=== PATIENT | male | born 1955 | race Caucasian/White ===

== ENCOUNTER 2022-09-09 13:22 | Emergency (ER) | payer MEDICARE, SELFPAY ==
--- NOTE | 2022-09-09 13:23 | ED.GENADULT ---
HPI - General Adult General Chief complaint: Back Pain/Injury Stated complaint: Back Pain, Headache Time Seen by Provider: 09/09/22 13:38 Source: patient, RN notes reviewed and old records reviewed Mode of arrival: ambulatory Limitations: no limitations History of Present Illness HPI narrative: 66-year-old male presents to the [facility] with complaints of lower back pain and headache. Patient states he has had the lower back pain for years, states that he recently bought a shower chair, got wedged and had to call EMS. At that time he reports he was transported to [facility] and had scans, reports they did nothing for him after that. Also reports a headache that has been going on for months. Patient states that he tried calling his primary care provider and cannot get an appointment October 09. States that his current primary is retiring. Patient denies any new symptoms that just is tired of the low back pain. Is using a walker, has 2 postop shoes on. Shuffling gait noted Onset (ago): year(s) Related Data Home Medications Medication Instructions Recorded Confirmed amlodipine 10 mg tablet 10 mg PO DAILY 09/09/22 09/09/22 apixaban 5 mg tablet (Eliquis) 5 mg PO DAILY 09/09/22 09/09/22 [id number]-[id number] 1 cap PO DAILY 09/09/22 09/09/22 50 mg-300 mg-40 mg capsule carvedilol 25 mg tablet 25 mg PO DAILY 09/09/22 09/09/22 clonidine HCl 0.1 mg tablet 0.1 mg PO DAILY 09/09/22 09/09/22 furosemide 80 mg tablet 80 mg PO DAILY 09/09/22 09/09/22 levothyroxine 75 mcg tablet 75 mcg PO DAILY 09/09/22 09/09/22 losartan 25 mg tablet 25 mg PO DAILY 09/09/22 09/09/22 paroxetine HCl 10 mg tablet 10 mg PO DAILY 09/09/22 09/09/22 potassium chloride 10 mEq 10 meq PO DAILY 09/09/22 09/09/22 tablet,extended release pregabalin 50 mg capsule 50 mg PO DAILY 09/09/22 09/09/22 rosuvastatin 40 mg tablet 40 mg PO DAILY 09/09/22 09/09/22 spironolactone 25 mg tablet 25 mg PO DAILY 09/09/22 09/09/22 tramadol 50 mg tablet 50 mg PO DAILY 09/09/22 09/09/22 Allergies Allergy/AdvReac Type Severity Reaction Status Date / Time No Known Allergies Allergy Verified 09/09/22 13:59 Review of Systems Review of Systems: All systems reviewed & are unremarkable except as noted in HPI and below Constitutional: Constitutional: Reports no additional constitutional complaints Eyes: Eyes: Reports no additional eye complaints ENT: Reports system reviewed and no additional complaints, except as documented Cardiovascular: Cardiovascular: Reports no additional cardiovascular complaints, Denies chest pain and Denies dyspnea Respiratory: Respiratory: Reports no additional respiratory complaints, Denies chest congestion, Denies cough and Denies dyspnea Gastrointestinal: Gastrointestinal: Reports no additional gastrointestinal complaints, Denies abdominal pain, Denies nausea and Denies vomiting Musculoskeletal: Musculoskeletal: Reports as per HPI and Reports back pain Integumentary/Breasts: Skin/Breast: Reports system reviewed and no additional complaints, except as docu Neurologic: Reports system reviewed and no additional complaints, except as documented Psychiatric: Psychiatric: Reports no additional psychiatric complaints Allergic/Immunologic: Allergic/Immunologic: Reports no additional allergic/immunologic complaints PMFSH Past Medical History Medical History Anxiety and depression Chronic back pain Congestive heart failure Heart attack High cholesterol Thyroid disease Comments At the time of my signature, I reviewed and agree with the nursing past medical, surgical, social, and family history. There is no relevant family history pertinent to the patient complaint. Exam Const: General: cooperative, healthy appearing, comfortable, no acute distress, well developed, alert and well nourished Nutritional Appearance: well nourished and obese morbidly obese Orientation/co
[2022-09-09 13:45] VITALS: BP 165/99; PULSE 79; RESP 20; TEMP 35.9; O2SAT 99
== END 2022-09-09 14:18 | disposition home or self-care (01) ==
PROVIDERS: Emergency Provider Nurse Practitioner; PCP Internal Medicine Cardiovascular Disease
DX: G89.29 Other chronic pain (principal); M54.50 Low back pain, unspecified; R51.9 Headache, unspecified; F41.9 Anxiety disorder, unspecified; F32.A Depression, unspecified; E78.00 Pure hypercholesterolemia, unspecified; I50.9 Heart failure, unspecified; I25.2 Old myocardial infarction; E07.9 Disorder of thyroid, unspecified
CPT/HCPCS: 99213; G0463

== ENCOUNTER → 2023-07-17 12:58 | Outpatient (CLI) | payer MEDICARE, SELFPAY ==
--- NOTE | ~2023-07-17 | MR_ITS ---
MRI of the lumbar spine Clinical History: Radiculopathy Technique: Axial T2-weighted images, and sagittal T1-weighted, T2-weighted, and T2 fat-sat images wer e acquired. Findings: There is no fracture or subluxation of the lumbar spine. Vertebral bodies maintain normal h eight and alignment. No suspicious bone marrow signal reality seen. At L1-L2, there is no disc bulge or herniation. There is moderate facet arthropathy. No central canal stenosis or neural foraminal narrowing. At L2-L3, there is minimal disc bulge with moderate facet arthropathy. There is mild central canal st enosis. There is mild left neural foraminal narrowing. At L3-L4, there is mild disc bulge and moderate facet arthropathy. No ama central canal stenosis. T here is moderate bilateral neural foraminal narrowing. At L4-L5, there is disc bulge with severe facet arthropathy. No central canal stenosis. There is mode rate bilateral neural foraminal narrowing. At L5-S1, there is minimal disc bulge with moderate to advanced facet arthropathy. No central canal s tenosis. There is moderate left neural foraminal narrowing. Paravertebral soft tissues are unremarkable. Impression: Moderate degenerative spondylosis, as above. Reviewed, dictated and finalized at location . Impression: Moderate degenerative spondylosis, as above.
== END ==
PROVIDERS: PCP Physical Medicine & Rehabilitation; Visit Provider Physical Medicine & Rehabilitation
DX: M47.26 Other spondylosis with radiculopathy, lumbar region (principal)
CPT/HCPCS: 72148